=== PATIENT | female | born 1950 | race Two or more races ===

== ENCOUNTER 2025-06-02 13:07 | Outpatient (REF) | payer MEDICARE, SELFPAY ==
--- NOTE | ~2025-06-02 | XR_ITS ---
EXAMINATION: XR SHOULDER 2 OR MORE VIEWS RIGHT HISTORY: M25.511 - Pain in right shoulder COMPARISON: There are no prior studies available for comparison. FINDINGS: Four views of the right shoulder are submitted. The bones are osteopenic. There is no fracture or dislocation. The glenohumeral joint is maintained. There is moderate osteoarthritis of the AC joint. The soft tissues are unremarkable. XR/XR shoulder RT min 2V IMPRESSION: Osteopenia. Moderate osteoarthritis of the AC joint. Electronically signed by: Himanshu Baldwin MD 06/02/2025 03:56 PM EST [facility]
== END 2025-06-02 13:08 | disposition home or self-care (01) ==
LOC: HO.XRAY 13:07
PROVIDERS: PCP Internal Medicine; Visit Provider Internal Medicine
DX: M25.511 Pain in right shoulder (principal); E11.9 Type 2 diabetes mellitus without complications; I48.91 Unspecified atrial fibrillation; M25.561 Pain in right knee; I10 Essential (primary) hypertension; E78.5 Hyperlipidemia, unspecified; K21.9 Gastro-esophageal reflux disease without esophagitis; N32.81 Overactive bladder; E78.2 Mixed hyperlipidemia; E11.65 Type 2 diabetes mellitus with hyperglycemia; R41.3 Other amnesia; G89.29 Other chronic pain; Z23 Encounter for immunization; Z79.4 Long term (current) use of insulin; R01.1 Cardiac murmur, unspecified; R06.00 Dyspnea, unspecified
CPT/HCPCS: 73030; 90471; 90662; 96127; 99212

== ENCOUNTER 2025-06-02 13:07 | Outpatient (AMB) | payer MEDICARE, SELFPAY ==
--- NOTE | 2025-06-02 13:09 | MHC.PC.OV ---
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: No Accompanied by: Daughter Allergies No Known Allergies Allergy (Verified 06/02/25 13:14) Medication List - Last Reconciled 06/02/25 by Sarah Israel MD acetaminophen ER 650 mg PO DAILY PRN amlodipine 5 mg PO DAILY atorvastatin 40 mg PO BEDTIME blood sugar diagnostic (FreeStyle Lite Strips) As directed blood-glucose sensor (FreeStyle Yan 3 Plus Sensor device) As directed blood-glucose,sleeping car conductor,cont (FreeStyle Yan 3 [place]) As directed dapagliflozin propanediol (Farxiga) 10 mg PO DAILY docusate sodium 100 mg PO BID PRN famotidine 20 mg PO DAILY flash glucose sensor (FreeStyle Yan 2 Sensor kit) As directed insulin glargine (Lantus Solostar U-100 Insulin) 20 units subcut DAILY lidocaine 5% patches topical metformin ER 1,000 mg PO BID mirabegron ER (Myrbetriq) 25 mg PO DAILY warfarin 2.5 - 7.5 mg PO DAILY warfarin 1 mg PO DAILY Tobacco use date assessed: 06/02/25 Fall risk assessment: No Falls in past year Last assessed Fall Risk: 06/02/25 Dental Screening Dental Screen Date: 06/02/25 Did you have a dental visit in the last 12 months?: No Did you have a dental problem in the last 6 months where you did not have access to dental care?: No HPI HPI Comments History of Present Illness Details The patient is a 74 year old female who presents for management of chronic conditions. Type 2 Diabetes Mellitus: The patient has a history of type 2 diabetes mellitus with fluctuating blood glucose levels. Continuous glucose monitoring over the last 30 days shows a range from 125 mg/dL to near 300 mg/dL, with morning hypoglycemia in the 60s and 70s, at times accompanied by shakiness, and daytime hyperglycemia up to 251-350 mg/dL. The patient's diet is high in carbohydrates, including breads and pasta, and there is inconsistent breakfast intake. Medication regimen includes Lantus 20 units at night, metformin 1000 mg twice daily, and dapagliflozin (Farxiga) 10 mg. The patient has a follow-up appointment with [facility] endocrinology in a few weeks. Atrial Fibrillation: The patient is on warfarin for atrial fibrillation and has issues with medication adherence. Recent INR levels have been subtherapeutic at 1.9 for the past two weeks. The warfarin dose was recently increased from 2.5 mg to 5 mg for six days a week, with weekly INR monitoring due to the fluctuations. Goes to [facility]. 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 The patient experiences restricted movement and has difficulty brushing hair. Cognitive Impairment: The patient exhibits memory issues, characterized by repetitive conversations and forgetfulness. There is a history of forgetting items on the stove, posing a safety concern that requires supervision. The patient has a sedentary lifestyle, watching TV and sleeping often, but has recently started doing word search puzzles. Hypertension: The patient is on amlodipine 5 mg for blood pressure management. Hyperlipidemia: The patient is taking atorvastatin 40 mg for cholesterol. Gastroesophageal Reflux Disease: The patient takes famotidine 20 mg for reflux. Overactive Bladder: The patient takes Myrbetriq as prescribed by urogynecology for an overactive bladder. [facility] Medical History (Updated 06/02/25 @ 17:48 by Sarah Israel MD) Osteopenia Osteoarthritis of right shoulder Change in hearing Shortness of breath Murmur Right shoulder pain Memory changes Type 2 diabetes mellitus with hyperglycemia, with long-term current use of insulin Hyperlipidemia, unspecified Primary hypertension Atrial fibrillation Surgical History (Updated 05/30/25 @ 06:11 by Sherly Kuo) History of colonoscopy (~06/20/19) Family History (Updated 06/02/25 @ 13:16 by Sarah Israel MD) Other Colon cancer Coronary artery disease Diabetes mellitus Heart disease Social History Housing: Apartment Patient Tobacco Use Status: Never used Tobacco e-Cigarette/Vaping Use: Never Used service: No Current occupational status: retired Questionnaire PHQ-9 Over the last 2 weeks, how often have you been bothered by any of the following problems? 1. Little interest or pleasure in doing things: more than half the days 2. Feeling down, depressed, or hopeless: several days 3. Trouble falling or staying asleep, or sleeping too much: not at all 4. Feeling tired or having little energy: several days 5. Poor appetite or overeating: several days 6. Feeling bad about yourself - or that you are a failure or have let yourself or your family down: nearly every day 7. Trouble concentrating on things, such as reading the newspaper or watching television: nearly every day 8. Moving or speaking so slowly that other people could have noticed. Or the opposite - being so fidgety or restless that you have been moving around a lot more than usual: several days 9. Thoughts that you would be better off or of hurting yourself in some way: not at all Total score: 12 Depression Screening Interpretation: Positive Depression Screening Done: Yes 86705 - PHQ-9 Billing: Yes Source: Developed by Drs. Himanshu Dunn, Martha Brown, Agustin Salmeron and colleagues, with an educational shahid from [employer]. Thrive Questionnaire Date Thrive assessed: 06/02/25 I am a: Patient What is your living situation today?: I have a steady place to live Within the past 12 months, did the food you bought not last and you didn't have the money to get more?: Never true Within the past 12 months, did you worry whether your food would run out before you got money to buy more?: Never true Do you have trouble paying for medicines?: No Do you have trouble getting transportation to medical appointments?: No Do you have trouble paying your heating and electricity bill?: No Do you have trouble taking care of your child, family member or friend?: No Do you have trouble with day-to-day activities such as bathing, preparing meals, shopping, managing finances, etc.?: No Are you currently unemployed and looking for a job?: No Are you interested in more education?: No Please select the resources that you would like help with: Care for elder or disabled Currently or been in a relationship where the following occur: I choose not to answer THRIVE Score: 0 AUDIT C Alcohol Use Questionnaire (AUDIT-C) 1. How often do you have a drink containing alcohol?: Never 3. How often do you have six or more drinks on one occasion?: Never Total Score: 0 ANABELLA-7 AMB Questionnaire ANABELLA-7 Date ANABELLA - 7 assessed: 06/02/25 Feeling nervous, anxious, or on edge: 1 = Several days Not being able to stop or control worryin = Several days Worrying too much about different things: 1 = Several days Trouble relaxin = Several days Being so restless that it is hard to sit still: 1 = Several days Becoming easily annoyed or irritable: 1 = Several days Feeling afraid as if something awful might happen: 1 = Several days Total ANABELLA-7 score (0-4 normal; 5-9 mild; 10-14 moderate; 15-21 severe): 7 Source: Developed by Drs. Himanshu Dunn, Martha Brown, Agustin Salmeron and colleagues, with an educational shahid from [employer]. Review of Systems Narrative Review of Systems - Constitutional: Reports sleeping a lot during the day sometimes. - Ears: Daughter reports that patient is having trouble hearing more recently. - Respiratory: Reports occasional dyspnea. - Musculoskeletal: Reports right shoulder pain with restricted movement. - Neurological: Reports memory issues with repetitive conversation and forgetfulness. - Endocrine: Reports feeling shaky with morning hypoglycemia. Physical exam (Primary Care) Vital Signs: Last Vital Signs Temp 96.8 F 06/02/25 13:13 Pulse 58 06/02/25 13:13 Resp 16 06/02/25 13:13 BP 116/62 06/02/25 13:13 Pulse Ox 97 06/02/25 13:13 Oxygen Delivery Method Room Air 06/02/25 13:13 BMI result Body Mass Index 26.3 Tobacco/Smoking Status: Tobacco use Status Tobacco use date assessed 06/02/25 06/02/25 13:10 Patient Tobacco Use Status Never used Tobacco 06/02/25 13:17 e-Cigarette/Vaping Use Never Used 06/02/25 13:17 PHQ-9: PHQ-9 Score PHQ-9: Total score 12 06/02/25 15:01 Depression Screening Interpretation: Positive Thrive Assessment: Date of Thrive Assessment Date Thrive assessed 06/02/25 06/02/25 13:22 Currently or been in a relationship where the following occur: I choose not to answer Narrative Physical Exam - Cardiovascular: Regular rhythm, soft murmur noted. - Pulmonary: Lungs are clear to auscultation, no wheezing noted. - Abdomen: Soft, non-distended, non-tender, with normal sounds. - Extremities: No leg swelling. - Musculoskeletal: Right shoulder is non-tender to palpation, but movement is restricted with pain on lifting and internal and external rotation. Office Procedures Flu Questionnaire Does the patient have a severe egg allergy?: No Does the patient have severe life threatening allergies?: No Has the patient ever had Guillain-[place] Syndrome?: No Has the patient ever had any past reaction to a flu shot?: No Immunizations Fluzone High-Dose (PF) 180 mcg/0.5 mL intramuscular syringe Performing Provider: Sarah Israel MD Performing Location: [facility] Administered by: Carin Henderson CMA on 06/02/25 14:16 Dose Route Admin Location Dispensed Lot Number Expiration Date NDC Film Writer 0.5 mL IM Left Deltoid 0.5 mL [id number] 01/06/26 80948-762-92 [employer] Total Dispensed Waste 0.5 mL 0 % VIS Given Date VIS Provided VIS Publication Date 06/02/25 Single Vaccine 24 Eligibility Eligibility Date Funding Source Not [facility] Eligible 06/02/25 Private Coding Level of Care Code Est Pt Level 4 (21093) Complex visit Add On G2211 Diagnoses Primary hypertension I10 Atrial fibrillation, unspecified type I48.91 Atrial fibrillation type: unspecified Mixed hyperlipidemia E78.2 Hyperlipidemia type: mixed hyperlipidemia Type 2 diabetes mellitus with hyperglycemia, with long-term current use of insulin E11.65; Z79.4 Memory changes R41.3 Chronic right shoulder pain M25.511; G89.29 Chronicity: chronic Additional Codes PHQ-9 - 41847 - PHQ-9 Billing: Yes ([id number]) Assessment & Plan Assessment & Plan (1) Primary hypertension: Code(s): I10 - Essential (primary) hypertension Category: Medical (2) Atrial fibrillation: Code(s): I48.91 - Unspecified atrial fibrillation Category: Medical Qualifiers: Atrial fibrillation type: unspecified Qualified Code(s): I48.91 - Unspecified atrial fibrillation (3) Hyperlipidemia, unspecified: Code(s): E78.5 - Hyperlipidemia, unspecified Category: Medical Qualifiers: Hyperlipidemia type: mixed hyperlipidemia Qualified Code(s): E78.2 - Mixed hyperlipidemia (4) Type 2 diabetes mellitus with hyperglycemia, with long-term current use of insulin: Code(s): E11.65 - Type 2 diabetes mellitus with hyperglycemia; Z79.4 - nursing home (current) use of insulin Category: Medical (5) Memory changes: Code(s): R41.3 - Other amnesia Category: Medical (6) Right shoulder pain: Code(s): M25.511 - Pain in right shoulder Category: Medical Qualifiers: Chronicity: chronic Qualified Code(s): M25.511 - Pain in right shoulder; G89.29 - Other chronic pain Plan Assessment and Plan 1. Type 2 Diabetes Mellitus, uncontrolled - The patient exhibits morning hypoglycemia with symptoms and significant daytime hyperglycemia due to diet. - The plan includes obtaining fasting labs, including an A1c, continuing the current medication regimen, and providing dietary counseling to increase protein and fiber while reducing carbohydrate intake. - The patient will follow up with endocrinology as scheduled. 2. Right Shoulder Pain - The symptoms and onset are suspicious for a rotator cuff injury or tendinitis. - An X-ray of the right shoulder will be performed today. - The patient is advised to use ice, massage, heating pads, and lidocaine patches. - A referral for physical therapy will be considered based on the X-ray findings. 3. Cognitive Impairment - The patient demonstrates forgetfulness and repetitive conversation, with notable safety concerns such as forgetting items on the stove. - A referral will be placed for a neurology consult for further evaluation. 4. Atrial Fibrillation with subtherapeutic INR - The patient has a history of medication non-adherence and a recent INR of 1.9. - The plan is to continue with the recently increased warfarin dose and weekly INR monitoring by the anticoagulation clinic while stressing the importance of adherence to prevent a stroke. 5. Heart Murmur and Dyspnea - The patient reports intermittent shortness of breath, and a soft murmur was noted on exam. - An echocardiogram will be ordered to evaluate cardiac valves and function 6. Hearing Loss - The patient and family report increased difficulty with hearing. - A referral will be made to a hearing center for an audiology evaluation. 7. Health Maintenance - The patient will receive a high-dose flu shot today. - Fasting labs, including a CBC, CMP, lipid panel, A1c, and TSH, will be ordered. - The patient was counseled on increasing water intake to three bottles daily without sugar and incorporating daily walks for activity. Plan - Order fasting labs including a complete blood count, comprehensive metabolic panel, lipid panel, hemoglobin A1c, and TSH. - Order a right shoulder X-ray to be completed today. - Administer a high-dose influenza vaccine in the office today. - Place a referral to Neurology for evaluation of cognitive impairment. - Place a referral to the hearing center for an audiology evaluation. - Order an echocardiogram to evaluate the heart murmur and dyspnea. - Patient to continue weekly INR checks and follow dose adjustments from the anticoagulation clinic. 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 - Advise patient on home care for shoulder pain, including ice, massage, heating pad, and lidocaine patches. - Consider a physical therapy referral pending results of the shoulder X-ray. Discussion Notes I had a detailed discussion with the patient and the patient's daughter regarding the multiple active health issues. We reviewed the fluctuating blood glucose levels and the importance of dietary modifications, including reducing carbohydrates and increasing hydration with plain water. I explained the risks associated with the subtherapeutic INR, emphasizing the need for strict warfarin adherence to prevent a stroke and the plan for weekly monitoring. I recommended a neurology consultation for a formal evaluation, with the daughter's involvement for collateral information. I also explained the plan to investigate the patient's intermittent shortness of breath and heart murmur with an echocardiogram, and the reported hearing loss with a referral to audiology. Patient Instructions - Go for an X-ray of your right shoulder today. The order has been placed. - You need to have fasting blood work done soon. This means you should not eat before the test, but you can drink plain water. Please do not take your morning medications until after the blood test is complete. - We are placing referrals for you to see a neurologist for your memory and an supervisor particleboard for a hearing test. - An order will be placed for an ultrasound of your heart (echocardiogram) to check on the heart murmur and your breathing. - It is very important to take your Warfarin (blood thinner) exactly as prescribed to prevent a stroke. Your dose has changed, and you will need to get your blood checked every week for now. - For your shoulder pain, you can use ice, a heating pad, massage, and the lidocaine patches. - Try to improve your diet by eating a breakfast with protein and reducing carbs like bread and pasta. - Drink more water, aiming for at least three bottles of plain water per day. Do not add sugar or too much lemon. - Try to be more active by taking short walks each day. Orders: Orders Complete Blood Count Auto Diff Today E78.5 - Hyperlipidemia, unspecified, I10 - Essential (primary) hypertension, I48.91 - Unspecified atrial fibrillation Comprehensive Met. Panel Today E11.65 - Type 2 diabetes mellitus with hyperglycemia, E78.5 - Hyperlipidemia, unspecified, I10 - Essential (primary) hypertension, I48.91 - Unspecified atrial fibrillation, Z79.4 - tank terminal gauger (current) use of insulin Hemoglobin A1c Today E11.65 - Type 2 diabetes mellitus with hyperglycemia, E78.5 - Hyperlipidemia, unspecified, I10 - Essential (primary) hypertension, I48.91 - Unspecified atrial fibrillation, Z79.4 - tank terminal gauger (current) use of insulin XR shoulder RT min 2V Today M25.511 - Pain in right shoulder CA echo transthoracic complete Today I48.91 - Unspecified atrial fibrillation, R01.1 - Cardiac murmur, unspecified, R06.02 - Shortness of breath Lipid Panel Today E78.5 - Hyperlipidemia, unspecified, I10 - Essential (primary) hypertension, I48.91 - Unspecified atrial fibrillation TSH reflex Free T4 Today E78.5 - Hyperlipidemia, unspecified, I10 - Essential (primary) hypertension, I48.91 - Unspecified atrial fibrillation Microalbumin, Random (w Creat) Today E78.5 - Hyperlipidemia, unspecified, I10 - Essential (primary) hypertension, I48.91 - Unspecified atrial fibrillation Influenza [id number] High Dose Immunization Today Z23 - Encounter for immunization Referrals Neurology Referral R41.3 - Other amnesia Speech and Hearing Referral H91.90 - Unspecified hearing loss, unspecified ear Patient Instructions: GET SHOULDER XRAY TODAY. USE TOPICAL RUB WE WILL SCHEDULE PHYSICAL THERAPY DEPENDING ON RESULTS DEPARTMENT WILL CALL YOU TO SCHEDULE ECHOCARDIOGRAM GET FASTING LABS
[2025-06-02 13:13] VITALS: BP 116/62; PULSE 58; RESP 16; TEMP 36; O2SAT 97; BMI 26.3
--- OUTSIDE RECORDS SUMMARY | 2025-06-02 17:41 | XMS_ITS | Clinical Summary ---
Author Organization [address] 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 Active acetaminophen (TYLENOL 8 HOUR) 650 mg 8 hr tablet Take 1 tablet (650 mg total) by mouth every 8 (eight) hours if needed. Active amLODIPine (NORVASC) 5 mg tablet Take 1 tablet (5 mg total) by mouth 1 (one) time each day. Active ammonium lactate (LAC-HYDRIN) 12 % lotion Apply to soles of feet daily. At night wear socks to bed 12/25/2023 Active atorvastatin (LIPITOR) 40 mg tablet Take 1 tablet (40 mg total) by mouth 1 (one) time each day. Active docusate sodium (COLACE) 100 mg capsule Take 1 capsule (100 mg total) by mouth 2 (two) times a day. Active hydrOXYzine HCL (ATARAX) 10 mg tablet Take 1 tablet (10 mg total) by mouth 3 (three) times a day if needed. Active insulin glargine (LANTUS) 100 unit/mL injection Inject under the skin at bedtime. Active insulin lispro 100 unit/mL injection Inject as directed. Active lidocaine (LIDODERM) 5 % patch Place 1 patch on the skin 1 (one) time each day. Apply for no more than 12 hours in any 24 hour period. Active metFORMIN (GLUCOPHAGE) 1,000 mg tablet Take 1 tablet (1,000 mg total) by mouth 2 (two) times a day with meals. Active polyethylene glycol (MIRALAX) 17 gram packet Take 17 g by mouth 1 (one) time each day. Active warfarin (COUMADIN) 5 mg tablet Take 1 tablet (5 mg total) by mouth. May cause heavy bleeding. Take at same time every day. Do not change dietary habits. Active Active Problems Problem Noted Date Diagnosed Date AF (atrial fibrillation) ([facility] V24, [facility] V 28) 10/20/2023 Back pain 10/20/2023 Chronic constipation 10/20/2023 Diabetic neuropathy ([facility] [place]24, [facility] V28) 0 10/20/2023 Essential hypertension 10/20/2023 Encounters Date Type Department Care Team Description 04/10/2025 9:45 AM EDT Office Visit Orthopedic Surgery [place] [address] [phone] Lemuel Ewing DPM Controlled type 2 diabetes with neuropathy ([facility] V24, [facility] V28) (Primary Dx); Arthritis of both feet; Pain in both feet; PAD (peripheral artery disease) ([facility] V24); Dermatophytosis, nail from Last 3 Months Social History Tobacco Use Types Packs/Day Years Used Date Smoking Tobacco: Never Assessed Comments Unknown Sex and Gender Information Value Date Recorded Sex Assigned at Not on file Legal Sex Female 3:58 AM EST Gender Identity Not on file Sexual Orientation Not on file Last Filed Vital Signs Vital Sign Reading Time Taken Comments Blood Pressure - - Pulse - - Temperature - - Respiratory Rate - - Oxygen Saturation - - Inhaled Oxygen Concentration - - Weight 71.2 kg (157 lb) 11/25/2024 10:54 AM EDT Height 149.9 cm (4' 11.02 ) 11/25/2024 10:54 AM EDT Body Mass Index 31.69 11/25/2024 10:54 AM EDT Plan of Treatment Upcoming Encounters Date Type Department Care Team (Late st Contact Info) Description 06/12/2025 9:30 AM EST Office Visit Orthopedic Surgery [facility] [address] [phone] Lemuel Ewing DPM [address] [id number] Health Maintenance Due Date Last Done Comments Colorectal Cancer Screening: Colonoscopy 1950 Diabetes: Annual GFR (Glomerular Filtration Rate) 1949 Diabetes: Annual Foot Exam 1959 Diabetes: Annual Retina Eye Exam 1959 Zoster Vaccines (2 of 3) 02/26/2014 01/01/2014 Cholesterol Screening (Lipid Panel) 06/12/2022 Falls Risk Assessment 06/12/2022 Hepatitis C Screening 06/12/2022 Medicare Annual Wellness Visit 06/12/2022 Osteoporosis Screening (Bone Density Screening) 06/12/2022 Social Influencers of Health Screening 06/12/2022 Diabetes: Annual Urine Albumin-Creatinine Ratio (uACR) 02/02/2024 Diabetes: Blood Sugar Control Test (HGBA1C) 02/02/2024 Hypertension/CHF/CAD Annual BMP Blood Test 02/02/2024 RSV Immunization Adult Patients (1 - 1-dose 75+ series) 2024 Depression Screening 07/10/2024 COVID-19 Vaccine ( season) 2025 12/02/2021, 08/29/2020, 08/08/2020 Influenza Vaccine (#1) 2025 , 07/25/2019, 05/21/2018, Additional history exists DTaP,Tdap,and Td Vaccines (3 - Td or Tdap) 01/05/2028 01/04/2018, 01/01/2014 Pneumococcal Vaccine: 50+ Years Completed 06/14/2023, 01/04/2018, 01/01/2014 HIB Vaccines Aged Out No longer eligi ble based on patient's age to complete this topic HPV Vaccines Aged Out No longer eligi ble based on patient's age to complete this topic Hepatitis A Vaccines Aged Out No long er eligible based on patient's age to complete this topic Hepatitis B Vaccines Aged Out No long er eligible based on patient's age to complete this topic IPV Vaccines Aged Out No longer eligi ble based on patient's age to complete this topic MMR Vaccines Aged Out No longer eligi ble based on patient's age to complete this topic Meningococcal ACWY Vaccine Aged Out N o longer eligible based on patient's age to complete this topic Meningococcal B Vaccine Aged Out No l onger eligible based on patient's age to complete this topic RSV Immunization Patients Under 20 months Aged Out No longer eligible based on patient's age to complete this topic Varicella Vaccines Aged Out No longer eligible based on patient's age to complete this topic Insurance [employer] [place]ICAID - [place] Care Teams Tanning Drum Operator Relationship Specialty Start Date End Date Sarah Israel MD [address] [place] [address] PCP - General 08/02/23
--- OUTSIDE RECORDS SUMMARY | 2025-06-02 17:41 | XMS_ITS | Encounter Summary ---
Author Organization [employer] Address [address] [facility] [address] [place] [address] Care Team Providers Care Lift Team Technician Name Role Phone Unavailable Primary Care Provider Unavailabl e Reason for Visit * Reason Onset Date Comments requesting phone call 06/15/2023 Encounter Details Date Type Department Care Team (Late st Contact Info) Description 06/15/2023 Telephone [facility] [address] [place] [address] Merry Wall BDS requesting phone call Social History Tobacco Use Types Packs/Day Years Used Date Smoking Tobacco: Never Assessed Comments Unknown Sex and Gender Information Value Date Recorded Sex Assigned at Female 12/29/2022 9:51 AM EDT Legal Sex Female 9:50 AM EDT Gender Identity Female 12/29/2022 9:51 AM EDT Sexual Orientation Choose not to disclose 2022 9:57 AM EDT documented as of this encounter Miscellaneous Notes * Telephone Encounter - Augusta Carrington - 06/15/2023 10:31 AM EST Patient daughter requesting phone call from Dr. Wall. She is basically looking to apologize for her outburst in the office yesterday but also wanted to review the information that she was not aware that had to be taken care of on her part for the INR report to office. She also states that the patient is supposed to have an appt on 06/21 to come back but there is nothing scheduled for her. She is concerned about the back and forth because this is the 3rd time that she has had the appt scheduled and then cancelled and her mom is coming off and going back on medication and its not advised by her provider that this happen frequently. She would like a call back to review the information and si tuation yesterday in office. 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 Pls call [phone]. documented in this encounter Plan of Treatment Not on file documented as of this encounter Visit Diagnoses Not on filedocumented in this encounter
--- OUTSIDE RECORDS SUMMARY | 2025-06-02 17:41 | XMS_ITS | Clinical Summary ---
Author Organization [employer] Address [address] [facility] [address] [place] [address] Care Team Providers Care Employment Legal Assistant Name Role Phone Unavailable Primary Care Provider Unavailabl e Allergies No known active allergies Medications acetaminophen (Tylenol 8 Hour) 650 MG ER tablet TAKE ONE TABLET DAILY NEEDED FOR PAIN 3 Active amLODIPine (Norvasc) 5 MG tablet Take 5 mg by mouth in the morning. 3 Active atorvastatin (Lipitor) 40 MG tablet Take 40 mg by mouth at bedtime. 3 Active docusate sodium (Colace) 100 MG capsule TAKE ONE CAPSULE TWICE DAILY NEEDED FOR CONSTIPATION 3 Active FREESTYLE LITE test strip TEST BLOOD SUGAR FOUR TIMES DAILY 3 Active Lantus 100 UNIT/ML injection INJECT 45 UNITS SUBCUTANEOUSLY EVERY DAY 3 Active lidocaine (Lidoderm) 5 % patch APPLY 1 PATCH TO SKIN. LEAVE ON FOR 12 HOURS, THEN OFF FOR 12 HOURS DIRECTED. 3 Active metFORMIN (Glucophage) 1000 MG tablet Take 1,000 mg by mouth 2 times daily. 3 Active metroNIDAZOLE (Flagyl) 500 MG tablet TAKE ONE TABLET EVERY TWELVE HOURS UNTIL FINISHED 3 Active warfarin (Coumadin) 5 MG tablet TAKE 1/2 TO 1 TABLET DAILY OR DIRECTED by coumadin clinic 3 Active famotidine (Pepcid) 20 MG tablet TAKE ONE TABLET EVERY DAY FOR ITCHING 4 Active Active Problems No known active problems Social History Tobacco Use Types Packs/Day Years Used Date Smoking Tobacco: Never Smokeless Tobacco: Never Tobacco Cessation:Counseling Given: Not Answered Alcohol Use Standard Drinks/Week Comments Never 0 (1 standard drink = 0.6 oz pur e alcohol) Comments Unknown Sex and Gender Information Value Date Recorded Sex Assigned at Female 12/29/2022 9:51 AM EDT Legal Sex Female 9:50 AM EDT Gender Identity Female 12/29/2022 9:51 AM EDT Sexual Orientation Choose not to disclose 2022 9:57 AM EDT Last Filed Vital Signs Vital Sign Reading Time Taken Comments Blood Pressure 130/78 08/01/2023 1:07 PM EST Pulse 68 08/01/2023 1:07 PM EST Temperature - - Respiratory Rate - - Oxygen Saturation - - Inhaled Oxygen Concentration - - Weight - - Height - - Body Mass Index - - Plan of Treatment Health Maintenance Due Date Last Done Comments CT Colonography 1950 Colonoscopy 1949 Colorectal Cancer Screening 1949 Dental Prophylaxis 1950 Dental X-Ray: Bitewings 1949 Dental X-Ray: Full Mouth 1949 Depression Screening 1949 FIT DNA/Cologuard 1949 FIT 1949 FOBT 1950 Lipid Panel 1949 SDOH Screening 1949 Sigmoidoscopy 1949 Alcohol/Substance Use Screening 1961 Hepatitis C Screening 1967 DTaP/Tdap/Td Vaccines (1 - Tdap) 1968 Pneumococcal Vaccine: 50+ Years (1 of 1 - PCV) 1999 Zoster Vaccines (2 of 2) 07/08/2021 05/13/2021 Dental Oral Exam 09/01/2023 02/28/2023 RSV Patients and Patients Aged 60 years or older (1 - 1-dose 75+ series) 2024 COVID-19 Vaccine (2 - 2024-2 6 season) 2025 06/11/2021 Influenza Vaccine (#1) 2025 , 05/08/2020 Tobacco Screening 03/14/2025 03/14/2024 HIB Vaccines Aged Out No longer eligi [...] patient's age to complete this topic Meningococcal Vaccine Aged Out No elvie ashish eligible based on patient's age to complete this topic RSV under 20 months Aged Out No longe r eligible based on patient's age to complete this topic Rotavirus Vaccines Aged Out No longer eligible based on patient's age to complete this topic Procedures Procedure Name Priority Date/Time Associated Diagnosis Comments PERIODIC ORAL EVALUATION - ESTABLISHED PATIENT Routine 02/28/2023 10:00 AM EDT from Last 3 Months or Most Recently Relevant to Health Maintenance Insurance DENTAL - [facility] PARTIAL (MEDICAID)
== END 2025-06-02 14:39 | disposition home or self-care (01) ==
LOC: HO.HMCHD 13:07
PROVIDERS: PCP Internal Medicine; Visit Provider Internal Medicine
DX: I10 Essential (primary) hypertension (principal); I48.91 Unspecified atrial fibrillation; E78.2 Mixed hyperlipidemia; E11.65 Type 2 diabetes mellitus with hyperglycemia; Z79.4 Long term (current) use of insulin; R41.3 Other amnesia; M25.511 Pain in right shoulder; G89.29 Other chronic pain; Z23 Encounter for immunization

== ENCOUNTER → 2025-06-02 15:01 | Outpatient (BNV) | payer MEDICARE, SELFPAY | PROVIDERS: PCP Internal Medicine; Visit Provider Radiology Diagnostic Radiology | DX: M25.511 Pain in right shoulder (principal) | CPT/HCPCS: 73030 ==

== ENCOUNTER 2025-07-04 08:33 | Outpatient (REF) | payer MEDICARE, SELFPAY ==
--- OUTSIDE RECORDS SUMMARY | 2025-07-04 08:37 | XMS_ITS | Clinical Summary ---
Author Organization [address] [facility] Address [address] [place] [address] Phone Care Team Providers Care Cone Picker Name Role Phone Sarah Israel MD Primary Care Provider [phone]- [phone] Allergies No known active allergies Medications glucosamine [...] Noted Date Diagnosed Date AF (atrial fibrillation) 10/20/2023 Back pain 10/20/2023 Chronic constipation 10/20/2023 Diabetic neuropathy 10/20/2023 Essential hypertension 10/20/2023 Encounters Date Type Department Care Team Description 06/12/2025 9:30 AM EST Office Visit Orthopedic Surgery [place] [address] [phone] Lemuel Ewing DPM Controlled type 2 diabetes with neuropathy ([facility] V24, CMS/[facility]ER[facility] V28) (Primary Dx); Arthritis of both feet; PAD (peripheral artery disease) (CMS/[facility] V24); Pain in both feet; Dermatophytosis, nail 04/10/2025 9:45 AM EDT Office Visit Orthopedic Surgery [facility] [address] [address] Lemuel Ewing DPM Controlled type 2 diabetes with neuropathy (CMS/HCC V24, CMS/HCC V28) (Primary Dx); Arthritis of both feet; Pain in both feet; PAD (peripheral artery disease) (CMS/HCC V24); Dermatophytosis, nail from Last 3 Months [...] Care Team (Late st Contact Info) Description 08/14/2025 9:45 AM EST Office Visit Orthopedic Surgery - [place] [address] [facility] [address] [place] [id number] Lemuel Ewing, DPM [address] [facility] [address] [place] [address] Health Maintenance Due Date Last Done Comments Diabetes: Annual GFR (Glomerular Filtration Rate) 1949 [...] 2024 Depression Screening 07/10/2024 COVID-19 Vaccine ( - season) 2025 12/02/2021, 08/29/2020, 08/08/2020 DTaP,Tdap,and Td Vaccines (3 - Td or Tdap) 01/05/2028 01/04/2018, 01/01/2014 Pneumococcal Vaccine: 50+ Years Completed 06/14/2023, 01/04/2018, 01/01/2014 Influenza Vaccine Completed 06/02/2025, , 07/25/2019, Additional history exists HIB Vaccines Aged Out No longer eligi [...] MEDICARE ADVANTAGE MEDICAID - [place] Care Teams Cone Picker Relationship Specialty Start Date End Date Sarah Israel MD [address] [place] [id number] PCP - General 08/02/23
--- OUTSIDE RECORDS SUMMARY | 2025-07-04 08:37 | XMS_ITS | Encounter Summary ---
Author Organization [employer] Address [address] [facility] [address] [place] [address] Care Team Providers Care Stock Clerk Name Role Phone Unavailable Primary Care Provider Unavailabl e Reason for Visit * Reason Onset Date Comments requesting phone call 06/15/2023 Encounter Details Date Type Department Care Team (Late st Contact Info) Description 06/15/2023 Telephone [facility] [address] [place] [address] Merry Wall BDS requesting phone call Social [...] si tuation yesterday in office. For front desk officer pls confirm appt information as there is nothing currently scheduled for patient and they are under impression appt should be on 06/21. Pls call [phone]. documented in this encounter Plan of Treatment Not on file documented as of this encounter Visit Diagnoses Not on filedocumented in this encounter
--- OUTSIDE RECORDS SUMMARY | 2025-07-04 08:37 | XMS_ITS | Clinical Summary ---
Author Organization [employer] Address [address] [facility] [address] [place] [address] Care Team Providers Care Steel Molder Name Role Phone Unavailable Primary Care Provider [...] Health Maintenance Due Date Last Done Comments Dental Prophylaxis 1949 Dental X-Ray: Bitewings 1949 Dental X-Ray: Full Mouth 1949 Depression Screening 1949 Lipid Panel 1949 SDOH Screening 1949 Alcohol/Substance Use Screening 1961 Hepatitis C [...]
[2025-07-04 09:26] LABS: MANUAL DIFF FLAG NO
[2025-07-04 10:32] LABS: Hematocrit 35.1 % (37.0-47.0); Hemoglobin 10.6 g/dl (12.0-16.0); Imm Gran Abs Auto 0.01 X10*3/uL (0.00-0.03); Imm Gran Pct Auto 0.3 % (0.0-0.4); Lymphocytes Absolute Auto 1.1 X10*3/uL (1.2-4.9); Mean Corpuscular HGB Conc 30.2 g/dl (31.0-35.0); Mean Corpuscular Hemoglobin 25.6 pg (27.0-33.0); Mean Corpuscular Volume 84.8 fL (80.0-98.0); NRBC Abs Auto 0.000 X10*3/uL (0.0-0.012); NRBC Pct Auto 0.0 /100WBC (0.0-0.2); Platelet Count 269 X10*3/uL (160-400); Red Blood Count 4.14 X10*6/uL (4.20-5.50); White Blood Count 3.7 X10*3/uL (4.8-10.8)
[2025-07-04 10:50] LABS: Microalbum/Creatinine Ratio Ur 7.8 ug/mg cr (<30)
[2025-07-04 10:53] LABS: Alanine Aminotransferase 14 U/L (0-31); Albumin Level 4.2 g/dL (3.5-5.0); Alkaline Phosphatase 117 U/L (39-117); Anion Gap 12 (12-20); Aspartate Amino Transferase 23 U/L (5-31); Blood Urea Nitrogen 28 mg/dL (9-16); Calcium 9.5 mg/dL (8.4-10.2); Carbon Dioxide 26 mmol/L (22-29); Chloride 110 mmol/L (96-108); Cholesterol 137 mg/dL (<200); Estimated Glomerular Filt Rate 59; HDL Cholesterol 37 mg/dL (>40); Potassium 4.3 mmol/L (3.3-5.1); Sodium 144 mmol/L (135-145); Total Protein 7.3 g/dL (6.5-8.0); Triglycerides 84 mg/dL (<150)
== END 2025-07-04 08:34 | disposition home or self-care (01) ==
LOC: HO.HKASLDS 08:33
PROVIDERS: PCP Internal Medicine; Visit Provider Internal Medicine
DX: E11.65 Type 2 diabetes mellitus with hyperglycemia (principal); I48.91 Unspecified atrial fibrillation; I10 Essential (primary) hypertension; E78.5 Hyperlipidemia, unspecified; Z79.4 Long term (current) use of insulin
CPT/HCPCS: 36415; 80053; 80061; 82043; 82570; 83036; 84443; 85025